=== PATIENT | female | born 1960 | race Hispanic/Latino ===

== ENCOUNTER → 2017-12-14 | Outpatient (CLI) | payer OTHER, MEDICARE ==
[~2017-12-14] MED LIST: ALBUTEROL SULFATE 0.083% 2.5 MG/3 ML INH IH ONE; CARV3.1262 PO; FURO40TA7 PO; LOSA50TA2 PO
== END ==
LOC: RESP 08:34
PROVIDERS: ATTEND Internal Medicine Cardiovascular Disease
DX: R06.02 Shortness of breath (principal)
CPT/HCPCS: 94060; 94727; 94729

== ENCOUNTER → 2019-09-18 | Outpatient (CLI) | payer OTHER, MEDICARE ==
[~2019-09-18] VITALS: Ht 160 cm; Wt 75.8 kg
[~2019-09-18] MED LIST changes: -ALBUTEROL SULFATE 0.083% 2.5 MG/3 ML INH IH ONE; +ATOR40TA71 PO; +CARV6.25 PO; +ESOM40CA54 PO; +GABA-529 PO; +ISOS30TA6 PO; +MULT-1052 PO; +NITR0.4T50 SL; +SACU1TAB PO; +SODIUM CHLORIDE 0.9% 500ML 500 ML IV SCH; +SUCR1TAB2 PO; +VITAMIN B12 PO
[2019-09-18 10:30] VITALS: BP 170/68
[2019-09-18 10:34] LABS: BASOPHILS % (AUTO) 1.3 % (0.0-5.0); EOSINOPHILS % (AUTO) 5.7 % (0.0-8.0); HEMATOCRIT 34.5 % (36-48); LYMPHOCYTES % (AUTO) 33.1 % (21.0-51.0); MEAN CORPUSCULAR HEMOGLOBIN 29.8 pg (27.0-33.0); MEAN CORPUSCULAR HGB CONC 33.6 g/dL (32.0-36.0); MEAN CORPUSCULAR VOLUME 88.6 fL (79-99); MONOCYTES % (AUTO) 8.8 % (3.0-13.0); NEUTROPHILS % (AUTO) 51.1 % (40.0-77.0); PLATELET COUNT (AUTO) 302 K/uL (130-400); RED BLOOD CELL COUNT(AUTO) 3.89 MIL/uL (4.00-5.50); RED CELL DISTRIBUTION WIDTH 14.4 % (11.0-15.5); WHITE BLOOD COUNT (AUTO) 4.7 K/uL (4.8-10.8)
[2019-09-18 10:34] LABS: APPEARANCE,URINE Clear (CLEAR); BILIRUBIN,URINE Negative (NEGATIVE); COLOR,URINE Yellow (YELLOW); GLUCOSE, URINE (UA) Negative (NEGATIVE); KETONES,URINE Negative (NEGATIVE); LEUKOCYTE ESTERASE ,URINE Negative (NEGATIVE); NITRATE,URINE Negative (NEGATIVE); OCCULT BLOOD,URINE Negative (NEGATIVE); PROTEIN,URINE Negative (NEGATIVE); UROBILINOGEN,URINE 0.2 mg/dL (0.2-1.0)
[2019-09-18 10:42] LABS: CREATININE 1.9 mg/dL (0.5-1.5); POTASSIUM 5.2 mmol/L (3.5-5.1)
[2019-09-18 10:45] LABS: INR 0.98 (0.85-1.15); PARTIAL THROMBOPLASTIN TIME 24.8 SEC (26.3-35.5); PROTHROMBIN TIME 10.3 SEC (9.6-11.6)
--- NOTE | 2019-09-19 16:32 | NUR ---
LABS INFORMED BLANCA ALCARAZ OF ABNORMAL BUN/CREA/POTASSIUM. ORDERS RECEIVED TO REDRAW BMP ON AM OF PROCEDURE.
== END ==
LOC: DAH 10:00 → EDSTATUS 09-24 10:00
PROVIDERS: ATTEND Internal Medicine Cardiovascular Disease
DX: Z01.818 Encounter for other preprocedural examination (principal); I25.83 Coronary atherosclerosis due to lipid rich plaque; Z79.899 Other long term (current) drug therapy; Z82.49 Family history of ischemic heart disease and other diseases of the circulatory system; Z83.3 Family history of diabetes mellitus; Z82.5 Family history of asthma and other chronic lower respiratory diseases; Z82.3 Family history of stroke
CPT/HCPCS: 36415; 71045; 80048; 81003; 85025; 85610; 85730; 93005

== ENCOUNTER 2019-12-27 06:24 | Day surgery (SDC) | payer OTHER, MEDICARE ==
[2019-12-25 11:14] LABS: BASOPHILS % (AUTO) 0.1 % (0.0-5.0); EOSINOPHILS % (AUTO) 3.5 % (0.0-8.0); HEMATOCRIT 30.8 % (36-48); LYMPHOCYTES % (AUTO) 17.7 % (21.0-51.0); MEAN CORPUSCULAR HEMOGLOBIN 29.2 pg (27.0-33.0); MEAN CORPUSCULAR HGB CONC 31.8 g/dL (32.0-36.0); MEAN CORPUSCULAR VOLUME 91.7 fL (79-99); MONOCYTES % (AUTO) 8.4 % (3.0-13.0); PLATELET COUNT (AUTO) 369 K/uL (130-400); RED BLOOD CELL COUNT(AUTO) 3.36 MIL/uL (4.00-5.50); RED CELL DISTRIBUTION WIDTH 12.4 % (11.0-15.5); WHITE BLOOD COUNT (AUTO) 7.6 K/uL (4.8-10.8)
[2019-12-25 11:24] LABS: CREATININE 1.7 mg/dL (0.5-1.5); INR 0.94 (0.85-1.15); PARTIAL THROMBOPLASTIN TIME 25.2 SEC (26.3-35.5); POTASSIUM 4.8 mmol/L (3.5-5.1); PROTHROMBIN TIME 9.9 SEC (9.6-11.6)
[2019-12-25 11:33] LABS: APPEARANCE,URINE Clear (CLEAR); BILIRUBIN,URINE Negative (NEGATIVE); COLOR,URINE Yellow (YELLOW); GLUCOSE, URINE (UA) Negative (NEGATIVE); KETONES,URINE Negative (NEGATIVE); LEUKOCYTE ESTERASE ,URINE Small (NEGATIVE); NITRATE,URINE Negative (NEGATIVE); OCCULT BLOOD,URINE Negative (NEGATIVE); PROTEIN,URINE Negative (NEGATIVE); UROBILINOGEN,URINE 0.2 mg/dL (0.2-1.0)
[2019-12-25 11:50] LABS: BACTERIA,URINE Rare /HPF (None Seen); HYALINE CASTS, URINE 0-1 /LPF (0-1 /LPF); RBC,URINE 0-1 /HPF (0-1); SQUAMOUS EPITHELIAL CELL,UR 0-2 /HPF (0-2); WBC,URINE 0-1 /HPF (0-1)
[2019-12-25 12:05] VITALS: BP 118/53
--- NOTE | 2019-12-26 14:10 | NUR ---
LABS ABNORMAL UA/CBC/BMP WERE FAXED AND REPORTED BY Maikol MILLER RN. PHILIP MENDOZA ON PHONE. PER Marlen VARGAS, ELECT[employer]ICIAN SUPERVISOR HYDRATE PT WITH [email or web address]/HR DAY OF PROCEDURE.
[~2019-12-27] VITALS: Ht 158.8 cm; Wt 77.1 kg
[2019-12-27] VITALS (9 sets, daily range): BP systolic 98–120; BP diastolic 50–66
[~2019-12-27 06:24] MED LIST changes: -CARV3.1262 PO; -LOSA50TA2 PO
[2019-12-27] MEDS ORDERED: SODIUM CHLORIDE 0.9% 1000ML 1,000 ML IV SCH (07:00)
[2019-12-27] MEDS ORDERED: BIOT5000 PO (07:29)
[2019-12-27] MEDS ORDERED: GABA-529 PO (07:29)
[2019-12-27] MEDS ORDERED: ERGO500014 PO (07:29)
--- NOTE | 2019-12-27 10:00 | NUR ---
procedure pt taken to [facility] for scheduled procedure
[2019-12-27] MEDS ORDERED: HEPARIN SODIUM 1000UNIT/ML 10ML VIAL ONE (10:01)
[2019-12-27] MEDS ORDERED: IOHEXOL-350 50ML VIAL IV ONE (10:01)
[2019-12-27] MEDS ORDERED: IOHEXOL 350 MG/ML 100ML INFUS..BTL IV ONE (10:01)
[2019-12-27] MEDS ORDERED: LIDOCAINE HCL 2% 20ML ONE (10:01)
[2019-12-27] MEDS ORDERED: MIDAZOLAM HCL 1 MG/ML 2ML VIAL ONE (10:23)
--- NOTE | 2019-12-27 14:30 | NUR ---
dc pt dc home via [place],no distress noted. pt denied any pain or discomforts. pt accompanied by britney. right groin with angioseal closure device . dressing to site dry and intact.
== END 2019-12-27 14:30 | disposition home or self-care (01) ==
LOC: DAH 06:24
PROVIDERS: ATTEND Internal Medicine Cardiovascular Disease
DX: I25.10 Atherosclerotic heart disease of native coronary artery without angina pectoris (principal); I42.0 Dilated cardiomyopathy; I13.0 Hypertensive heart and chronic kidney disease with heart failure and stage 1 through stage 4 chronic kidney disease, or unspecified chronic kidney disease; E11.22 Type 2 diabetes mellitus with diabetic chronic kidney disease; N18.3 Chronic kidney disease, stage 3 (moderate); I50.22 Chronic systolic (congestive) heart failure; E78.5 Hyperlipidemia, unspecified; E11.69 Type 2 diabetes mellitus with other specified complication; Z79.01 Long term (current) use of anticoagulants; Z98.890 Other specified postprocedural states; Z79.82 Long term (current) use of aspirin; Z79.899 Other long term (current) drug therapy; Z82.49 Family history of ischemic heart disease and other diseases of the circulatory system; Z82.3 Family history of stroke; Z83.3 Family history of diabetes mellitus; Z82.5 Family history of asthma and other chronic lower respiratory diseases
CPT/HCPCS: 36415; 71045; 80048; 81001; 85025; 85610; 85730; 93005; 93458; 96360; 96361; A4215; A4216; A4221; A4222; A4223 ×3; A4606; A4663; C1760; C1894; J1644; J2250; J3490; J7030; Q9965; Q9967 ×2; 99156; 99157

== ENCOUNTER 2021-10-20 06:56 | Day surgery (SDC) | payer OTHER, MEDICARE ==
[~2021-10-20] VITALS: Ht 157.5 cm; Wt 88.7 kg
[~2021-10-20 06:56] MED LIST changes: +0.9%NACL 1000ML 1,000 ML IV ONE; +ASCO100031 PO; +ASPI-1197 PO; +CYAN-35 PO; +ERGO500093 PO; +HYDR-3420 PO; -ISOS30TA6 PO; +ISOS30TA92 PO; +LORA-997 PO; -SACU1TAB PO; -SODIUM CHLORIDE 0.9% 500ML 500 ML IV SCH; -SUCR1TAB2 PO; -VITAMIN B12 PO; +ZINC220T4 PO
[2021-10-20 07:20] VITALS: BP 195/83
[2021-10-20] MEDS ORDERED: LIDOCAINE PF 100MG/5ML (2%) SYRINGE 5ML ONE (08:41)
[2021-10-20] MEDS ORDERED: PROPOFOL 10 MG/ML 20ML VIAL IV ONE (08:41)
[2021-10-20] MEDS ORDERED: PHENYLEPHRINE HCL 10 MG/ML 1ML VIAL IV ONE (08:42)
[2021-10-20] MEDS ORDERED: EPHEDRINE SULFATE 50 MG/ML AMPULE ONE (08:42)
[2021-10-20] MEDS ORDERED: 0.9%NACL 10ML VIAL ONE (08:42)
[2021-10-20] MEDS ORDERED: MEPERIDINE-PF 50 MG/ML SYG ONE (08:43)
[2021-10-20 09:15] VITALS: BP 114/45
[2021-10-20 09:20] VITALS: BP 123/50
[2021-10-20 09:25] VITALS: BP 149/66
[2021-10-20 09:30] VITALS: BP 131/64
[2021-10-20 09:45] VITALS: BP 141/64
== END 2021-10-20 09:45 | disposition home or self-care (01) ==
LOC: ENDO 06:56 → DAH 06:56 → ENDO 09:45
PROVIDERS: ATTEND Internal Medicine Gastroenterology
DX: Z12.11 Encounter for screening for malignant neoplasm of colon (principal); K29.50 Unspecified chronic gastritis without bleeding; R11.2 Nausea with vomiting, unspecified; E78.5 Hyperlipidemia, unspecified; I11.0 Hypertensive heart disease with heart failure; K21.9 Gastro-esophageal reflux disease without esophagitis; I50.20 Unspecified systolic (congestive) heart failure; Z98.84 Bariatric surgery status; Z90.49 Acquired absence of other specified parts of digestive tract; Z20.822 Contact with and (suspected) exposure to COVID-19
CPT/HCPCS: 43239; 87635; A4606; C9803; G0121; J2001; J2175; J2370; J2704; J3490; J7030

== ENCOUNTER 2022-06-23 06:51 | Day surgery (SDC) | payer OTHER, MEDICARE ==
[~2022-06-23 06:51] MED LIST changes: -0.9%NACL 1000ML 1,000 ML IV ONE
[2022-06-23] MEDS ORDERED: 0.9%NACL 1000ML 1,000 ML IV ONE (08:27)
[2022-06-23] MEDS ORDERED: IOHEXOL 350 MG/ML 100ML INFUS..BTL IV ONE (11:37)
== END 2022-06-23 12:45 | disposition home or self-care (01) ==
LOC: DAH 06:51 → EDSTATUS 08:00 → DAH 12:45
PROVIDERS: ATTEND Internal Medicine Cardiovascular Disease
DX: I65.22 Occlusion and stenosis of left carotid artery (principal); I25.10 Atherosclerotic heart disease of native coronary artery without angina pectoris; R11.2 Nausea with vomiting, unspecified
CPT/HCPCS: 96360; 70498; 96361; J7030 ×2; Q9967; A4215; A4222; A4221; A4663; A4216; A4606; A4223 ×3

== ENCOUNTER → 2023-01-11 | Outpatient (CLI) | payer OTHER, MEDICARE ==
[2023-01-11 16:15] LABS: BASOPHILS % (AUTO) 0.6 % (0.0-5.0); EOSINOPHILS % (AUTO) 4.5 % (0.0-8.0); HEMATOCRIT 26.4 % (36-48); LYMPHOCYTES % (AUTO) 26.4 % (21.0-51.0); MEAN CORPUSCULAR HEMOGLOBIN 29.1 pg (27.0-33.0); MEAN CORPUSCULAR HGB CONC 30.7 g/dL (32.0-36.0); MONOCYTES % (AUTO) 8.2 % (3.0-13.0); NEUTROPHILS % (AUTO) 60.2 % (40.0-77.0); PLATELET COUNT (AUTO) 339 K/uL (130-400); RED BLOOD CELL COUNT(AUTO) 2.78 MIL/uL (4.00-5.50); WHITE BLOOD COUNT (AUTO) 6.9 K/uL (4.8-10.8)
[2023-01-11 16:21] LABS: CREATININE 2.4 mg/dL (0.5-1.5); POTASSIUM 5.1 mmol/L (3.5-5.1)
== END | disposition home or self-care (01) ==
LOC: LAB 11:40
PROVIDERS: ATTEND Internal Medicine Cardiovascular Disease
DX: I10 Essential (primary) hypertension (principal); E78.5 Hyperlipidemia, unspecified
CPT/HCPCS: 36415; 80048; 85025